=== PATIENT | female | born 1975 | race Caucasian/White ===

== ENCOUNTER 2018-11-19 08:05 | Emergency (ER) | payer OTHER ==
--- NOTE | 2018-11-19 09:00 | ER Document Report ---
ED General - General Chief Complaint: Fall Injury Stated Complaint: ANKLE INJURY Time Seen by Provider: 11/19/18 08:54 Primary Care Provider: KULWANT REEDER MD [ACTIVE STAFF] - Follow up tomorrow TRAVEL OUTSIDE OF THE [place] IN LAST 30 DAYS: No - HPI Notes: 43-year-old female to the emergency department with with complaints of left knee and right ankle injury that occurred last night. reports that they were going to dinner with friends and patient stepped out of his truck and into a ditch twisting her right ankle. He states that the ankle immediately became swollen. They elevated it and iced the ankle last night but she continues to have pain. She also took Motrin last night but has not taken any medicine this morning. States that after the initial injury the left knee began to hurt and now she has increased pain with bending the knee. Thinks that she twisted the knee down into the ditch. Any other injuries. - Related Data Allergies/Adverse Reactions: No Known Allergies Allergy (Unverified 11/19/18 08:12) Past Medical History - General Information source: Patient, Relative - - Social History Smoking Status: Never Smoker Chew tobacco use (# tins/day): No Frequency of alcohol use: Social Drug Abuse: None Family History: Reviewed & Not Pertinent Patient has suicidal ideation: No Patient has homicidal ideation: No Renal/ Medical History: Denies: Hx Peritoneal Dialysis Review of Systems - Review of Systems Constitutional: denies: Chills, Fever EENT: No symptoms reported Cardiovascular: denies: Chest pain, Palpitations, Syncope, Dizziness, Lightheaded Respiratory: denies: Cough, Short of breath Gastrointestinal: denies: Abdominal pain, Diarrhea, Nausea, Vomiting Genitourinary: No symptoms reported Musculoskeletal: Joint swelling - Positive knee pain, right ankle swelling, Ankle swelling Skin: Other - Right ankle ecchymosis Neurological/Psychological: No symptoms reported -: Yes All other systems reviewed and negative Physical Exam - Vital signs Vitals: Temp Pulse Resp BP Pulse Ox 97.8 F 63 16 145/95 H 100 11/19/18 08:11 11/19/18 08:11 11/19/18 08:11 11/19/18 08:11 11/19/18 08:11 Interpretation: Normal - General General appearance: Appears well, Alert - HEENT Head: Normocephalic, Atraumatic Eyes: Normal Pupils: PERRL - Respiratory Respiratory status: No respiratory distress Chest status: Nontender Breath sounds: Normal Chest palpation: Normal - Cardiovascular Rhythm: Regular Heart sounds: Normal auscultation Murmur: No - Abdominal Inspection: Normal Distension: No distension Bowel sounds: Normal Tenderness: Nontender Organomegaly: No organomegaly - Extremities Knee: Tender - Tenderness to palpation over the medial aspect of the left knee joint along the MCL. Negative anterior drawer, negative valgus and varus stressing. No ecchymosis, edema, dislocation. Under to palpation of the left ankle and left hip. Decreased range of motion and strength and left knee flexion secondary to pain, strength is 4 out of 5 against resistance in flexion; 5 out of 5 strength and extension Ankle: Tender - There is tenderness to palpation over the right ankle lateral malleolus with noted ecchymosis and edema. DP pulses are intact and equal, nontender to palpation over the right knee and all toes. Right calf is nontender to palpation. Achilles tendon bilaterally intact. Decreased strength and range of motion and dorsi and plantar flexion of the right ankle can Monroe to pain, strength is 4 out of 5 against resistance. All other joints in the right lower extremity at 5 out of 5 strength against resistance in flexion and extension Foot: Nontender - Neurological Neuro grossly intact: Yes Cognition: Normal Orientation: AAOx4 Alexander Coma Scale Eye Opening: Spontaneous Alexander Coma Scale Verbal: Oriented Cornelio Coma Scale Motor: Obeys Commands Alexander Coma Scale Total: 15 Speech: Normal Motor strength normal: LUE, RUE, LLE, RLE Sensory: Normal - Psychological Associated symptoms: Normal affect, Normal mood - Skin Skin Temperature: Warm Course - Vital Signs Vital signs: Temp Pulse Resp BP Pulse Ox 97.8 F 63 16 145/95 H 100 11/19/18 08:11 11/19/18 08:11 11/19/18 08:11 11/19/18 08:11 11/19/18 08:11 - Diagnostic Test Radiology reviewed: Image reviewed, Reports reviewed - Transfer of Care Notes: 11/19/18 10:01 Impression: Right ankle avulsion fracture, left knee sprain. Will splint patient to the right ankle with posterior splint and have her be on crutches and non weightbearing. We will also Cosmo wrap the left knee. Encouraged RICE; will send for orthopedic follow-up. Will treat pain with Motrin and and tramadol. Discussed x-ray findings with patient and her and they agree with the plan. Discharge - Discharge Clinical Impression: Fall, Left knee sprain, Avulsion fracture of right ankle Condition: Good Disposition: HOME, SELF-CARE Instructions: Avulsion Fracture of the Ankle ([facility]), Use of Crutches ([facility]), Ice & Elevation ([facility]) Additional Instructions: Follow-up with orthopedist listed below. No weightbearing, use crutches, rest, ice, elevate both knee and ankle. Take pain medicines as prescribed. Return if any worsening symptoms such as increased pain, redness, fever. Prescriptions: Ibuprofen [Motrin 600 mg Tablet] 800 mg PO Q8HP PRN #24 tablet PRN Reason: Tramadol HCl [Ultram] 25 mg PO Q6H #10 tablet Forms: Return to Work Referrals: KULWANT REEDER MD [ACTIVE STAFF] - Follow up tomorrow
--- NOTE | 2018-11-19 09:41 | RADIOLOGY REPORT (SQ) ---
EXAM DESCRIPTION: ANKLE RIGHT COMPLETE COMPLETED DATE/TIME: 11/19/2018 9:02 am REASON FOR STUDY: fall COMPARISON: None. NUMBER OF VIEWS: Three views. TECHNIQUE: AP, lateral, and oblique radiographic images acquired of the right ankle. LIMITATIONS: None. FINDINGS: MINERALIZATION: Normal. BONES: Suspect tiny acute avulsion fragments off the lateral edge of the talus and calcaneus at the a ttachment of the fibulotalar and fibular calcaneal ligaments. JOINTS: There is a tibiotalar joint effusion. No malalignment at the ankle mortise SOFT TISSUES: Lateral soft tissue swelling. No foreign body. OTHER: No other significant finding. IMPRESSION: Suspect tiny acute avulsion fragments off the lateral edge of the talus and calcaneus wi th overlying soft tissue swelling and small tibiotalar joint effusion TECHNICAL DOCUMENTATION: JOB ID: [id number]- All Rights Reserved Reading location - IP/workstation name: [email or web address]
--- NOTE | 2018-11-19 09:42 | RADIOLOGY REPORT (SQ) ---
EXAM DESCRIPTION: KNEE LEFT 4 VIEW COMPLETED DATE/TIME: 11/19/2018 9:02 am REASON FOR STUDY: fall COMPARISON: None. NUMBER OF VIEWS: Four views. TECHNIQUE: AP, lateral, and both oblique radiographic images acquired of the left knee. LIMITATIONS: None. FINDINGS: MINERALIZATION: Normal. BONES: No acute fracture or dislocation. No worrisome bone lesions. JOINT: No effusion. SOFT TISSUES: No soft tissue swelling. No radio-opaque foreign body. OTHER: No other significant finding. IMPRESSION: NEGATIVE STUDY OF THE LEFT KNEE. NO RADIOGRAPHIC EVIDENCE OF ACUTE INJURY. TECHNICAL DOCUMENTATION: JOB ID: [id number] [employer]- All Rights Reserved Reading location - IP/workstation name: [email or web address]
[2018-11-19] MEDS ORDERED: IBUPROFEN 600 MG TABLET PO ONE (09:52)
[2018-11-19] MEDS ORDERED: IBUPROFEN 800 MG TABLET ONE (09:59)
[2018-11-19 10:54] VITALS: BP 119/70
== END 2018-11-19 11:45 | disposition home or self-care (01) ==
LOC: ER 08:05
PROC: 2W3QX1Z Immobilization of Right Lower Leg using Splint (ICD-10-PCS; principal; 2018-11-19)
DX: S82.891A Other fracture of right lower leg, initial encounter for closed fracture (principal); S83.92XA Sprain of unspecified site of left knee, initial encounter; X58.XXXA Exposure to other specified factors, initial encounter; Y93.89 Activity, other specified; Y92.9 Unspecified place or not applicable; Y99.9 Unspecified external cause status
CPT/HCPCS: 99283